=== PATIENT | female | born 1970 | race Caucasian/White ===

== ENCOUNTER 2024-01-19 10:30 | Outpatient (AMB) | payer OTHER, SELFPAY ==
--- NOTE | 2024-01-19 10:48 | HO.SPINEOV ---
Intake Visit Reasons: C4-5 compression Intake Note: Ms. Curtis is here today c/o neck pain. 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 HPI: This 53-year-old female is status post C5-6 anterior diskectomy and fusion 2019. She developed severe pain in her arms shoulders with weakness and tingling a proximally 4 months ago. Her [place] neurologist ordered an MRI of the cervical spine and told her to see me for spinal cord compression. Physical Exam: She is awake alert, oriented x3. Normal strength. Sensory exam is intact. No pathological reflexes. Radiological Studies: MRI done at [facility] on 12/18/2023 show status post C5-6 anterior diskectomy and fusion. Otherwise the MRI is essentially normal. There is no spinal cord compression or nerve compression. The radiology report in my opinion is exaggerating minor findings. Impression/Plan: This patient is suffering from the above symptoms that are not related to spinal cord compression or nerve compression. I reviewed the MRI in detail with the patient and her . Thank you for allowing me to participate in your patients care. total time spent was 30 minutes in counseling ,coordination of plan, personal review of imaging, surgical decision making and subsequent plan Bennett Davis MD, PhD Sp[facility] Trained Neurosurgeon Director, [facility] Coding Level of Care Code New Pt Level 3 (68393) Diagnoses Bilateral arm pain M79.601; M79.602
== END 2024-01-19 11:10 | disposition home or self-care (01) ==
PROVIDERS: PCP Internal Medicine; Visit Provider Neurological Surgery
DX: M79.601 Pain in right arm (principal); M79.602 Pain in left arm
CPT/HCPCS: 99203

== ENCOUNTER → 2024-01-19 10:30 | Outpatient (BNVA) | payer OTHER, SELFPAY | PROVIDERS: PCP Internal Medicine; Visit Provider Neurological Surgery | DX: M79.601 Pain in right arm (principal); M79.602 Pain in left arm | CPT/HCPCS: 99202 ==